=== PATIENT | female | born 1940 | race Two or more races ===

== ENCOUNTER → 2019-11-16 | Day surgery (SDC) | payer OTHER ==
[2019-11-14 12:43] LABS: COVID AG,FIA SOURCE NASOPHARYNGEAL
[~2019-11-16] VITALS: Ht 149.9 cm; Wt 70.0 kg
[~2019-11-16] MED LIST: ALBU8HFA IH; ALBUTEROL HFA 90MCG IH; ALBUTEROL SULFATE 2.5 MG/0.5 ML NEB SOLUTION NEB ONE; ALEN70TA69 PO; AMLO5TAB66 PO; ASPI-1111 PO; BENZOCAINE 20% 50 MCG/SPRAY 57 GM TP ONE; CALC-805 PO; FLUT1BLS IH; FentaNYL CITRATE-PF 100 MCG/2 ML VIAL ONE; HYDR25TA PO; LIDOCAINE 2% 30 ML JELLY TP ONE; LOSA100T58 PO; METO25 PO; MIDAZOLAM HCL 2 MG/2 ML VIAL ONE; MethylPREDNISolone SOD SUCC 125 MG/2 ML VIAL IVP ONE; MethylPREDNISolone SOD SUCC 125 MG/2 ML VIAL ONE; OXYGEN THERAPY IH SCH; PRAV80TA21 PO; ROFL250T PO; SODIUM CHLORIDE 0.9% 1,000 ML IV ONE; SODIUM CHLORIDE 0.9% 1,000 ML ONE; UMEC62.5 IH
== END | disposition home or self-care (01) ==
LOC: SURGERY 06:30
PROVIDERS: ATTEND Internal Medicine Critical Care Medicine
DX: J38.4 Edema of larynx (principal); B37.0 Candidal stomatitis; I10 Essential (primary) hypertension; Z82.49 Family history of ischemic heart disease and other diseases of the circulatory system
CPT/HCPCS: 31623; 31624; 71045; 87015; 87070; 87101; 87205; 87206; 87220; 87426; 88108; 88312; 93005; 94660; J2250; J2930; J3010; J7030; 36600; J7613